=== PATIENT | male | born 1965 ===

== ENCOUNTER 2017-04-04 06:11 | Day surgery (SDC) | payer MEDICARE, MEDICAID ==
[2017-03-31 08:21] VITALS: BMI 29.0
[2017-04-04] MEDS ORDERED: Lactated Ringer's 1,000 ML IV ONE (07:00)
--- NOTE | 2017-04-04 10:44 | CP.PCM.HP ---
History of Present Illness - History of Present Illness History of Present Illness: CC: for possible total shoulder HPI: 51M PMH HTN and ETOH abuse, ETOH encephalopathy, fell 2 weeks ago out of bed onto shoulder, here for ORIF vs total shoulder replacement surgery today. Denies cardiac history. EKG, LABS, CXR reviewed in chart, METS>4. No cp no dyspnea at rest or on exertion. Patient is low risk for moderate risk surgery, medically stable for surgery. ROS: per HPI all other systems reviewed and negative by me PMH: HTN and ETOH abuse, ETOH encephalophathy PSH: neck surgery FH: denies SH: 1 ppd for 30 years, drinks 1/2 pint per day many years NKDA Temp Pulse Resp BP Pulse Ox 99 F 111 H 20 131/95 H 96 04/04/17 07:40 04/04/17 07:40 04/04/17 07:40 04/04/17 07:40 04/04/17 07:40 EXAM GEN: DELAY 2/2 HX ETOH ABUSE, THIN HEENT: NCAT, PERRL EOMI HEART S1S2 RRR LUNG CTAB NO WRR ABD SOFT NT ND NO MASS NO HSM EXT WARM WELL PERFUSED SKIN WARM DRY PSYCH NORMAL MOOD NORMAL AFFECT LABS REVIEWED IN CHART RADS: REVIEWED IN CHART ASSESSMENT AND PLAN: 51M PMH HTN and ETOH abuse, ETOH encephalopathy (Wernickes/Korsakoffs?), fell 2 weeks ago out of bed onto shoulder, here for ORIF vs total shoulder replacement surgery today. Denies cardiac history. EKG, LABS, CXR reviewed in chart, METS> 4. No cp no dyspnea at rest or on exertion. Patient is low risk for moderate risk surgery, medically stable for surgery. ORIF/Total shoulder replacement s/p fall admit to medsurg VTE ppx per ortho Ancef 2 more doses PT eval and treat pain control incentive spirometer Ortho consult Dr. Fung HTN stable, continue cozaar ETOH abuse/ETOH encephalopathy continue thiamine Present on Admission - Present on Admission Any Indicators Present on Admission: No Past Patient History - Past Medical History & Family History Past Medical History?: Yes - Past Social History Smoking Status: Heavy Smoker > 10 Cigarettes Daily - CARDIAC Hx Cardiac Disorders: Yes Hx Hypertension: Yes - PULMONARY Hx Respiratory Disorders: No - NEUROLOGICAL Hx Neurological Disorder: No - HEENT Hx HEENT Problems: No - RENAL Hx Chronic Kidney Disease: No - ENDOCRINE/METABOLIC Hx Endocrine Disorders: No - HEMATOLOGICAL/ONCOLOGICAL Hx Blood Disorders: No - INTEGUMENTARY Hx Dermatological Problems: No - MUSCULOSKELETAL/RHEUMATOLOGICAL Hx Musculoskeletal Disorders: Yes Hx Back Pain: Yes Other/Comment: LIMIT JOINT MOTION - GASTROINTESTINAL Hx Gastrointestinal Disorders: No - GENITOURINARY/GYNECOLOGICAL Hx Genitourinary Disorders: No - PSYCHIATRIC Hx Psychophysiologic Disorder: No Hx Substance Use: No - SURGICAL HISTORY Hx Surgeries: Yes Other/Comment: NECK SX 2010 - ANESTHESIA Hx Anesthesia: Yes Hx Anesthesia Reactions: No Hx Malignant Hyperthermia: No Has any member of the family had a problem w/ anesthesia?: No Meds Allergies/Adverse Reactions: Allergies Allergy/AdvReac Type Severity Reaction Status Date / Time No Known Allergies Allergy Verified 05/01/14 15:25 Results - Vital Signs Recent Vital Signs: Last Vital Signs Temp 99 F 04/04/17 07:40 Pulse 111 H 04/04/17 07:40 Resp 20 04/04/17 07:40 BP 131/95 H 04/04/17 07:40 Pulse Ox 96 04/04/17 07:40 - Labs Labs: Laboratory Results - last 24 hr 04/04/17 04/04/17 07:15 07:41 Blood Type AB POSITIVE Blood Type Confirm AB POSITIVE Antibody Screen Negative Crossmatch See Detail BBK History Checked No verified bt
[2017-04-04 12:59] LABS: SQUAMOUS EPITHIAL 1 /hpf (0-5); URINE BILIRUBIN NEGATIVE (NEGATIVE); URINE BLOOD NEGATIVE (NEGATIVE); URINE CLARITY CLEAR (Clear); URINE COLOR YELLOW (YELLOW); URINE GLUCOSE (UA) NEG (Normal); URINE LEUKOCYTE ESTERASE NEG Leu/uL (Negative); URINE NITRATE NEGATIVE (NEGATIVE); URINE PROTEIN NEGATIVE (NEGATIVE)
[2017-04-04 13:22] LABS: INR 1.4 (0.9-1.2); PROTHROMBIN TIME 15.3 Seconds (9.8-13.1)
[2017-04-04 13:23] LABS: PARTIAL THROMBOPLASTIN TIME 30.2 Seconds (25.6-37.1)
[2017-04-04] MEDS ORDERED: Succinylcholine 200 mg/10 ml Inj IV ONE (16:58)
[2017-04-04] MEDS ORDERED: Midazolam 2 MG/2 ML VIAL ONE (16:58)
[2017-04-04] MEDS ORDERED: Propofol 10 mg/ml Inj (20 ML) ONE (16:58)
[2017-04-04] MEDS ORDERED: Lidocaine 4% (Laryng-O-Jet) Kit MM ONE (16:58)
[2017-04-04] MEDS ORDERED: Lidocaine Hydrochloride 5 ML INJ ONE (16:58)
[2017-04-04] MEDS ORDERED: HYDROmorphone 0.5 mg/0.5 ml ISec IVP PRN (19:06)
[2017-04-04] MEDS ORDERED: Lactated Ringer's 1,000 ML IV SCH (19:06)
--- NOTE | 2017-04-04 19:25 | CP.PCM.DIS ---
Provider - Provider Attending physician: Santosh Fung III, MD Primary care physician: Sharon Ruff MD Time Spent in preparation of Discharge (in minutes): 20 Hospital Course - Lab Results Lab Results: Most Recent Lab Values PT 15.3 Seconds (9.8-13.1) H 04/04/17 12:50 INR 1.4 (0.9-1.2) H 04/04/17 12:50 APTT 30.2 Seconds (25.6-37.1) 04/04/17 12:50 Urine Color Yellow (YELLOW) 04/04/17 12:50 Urine Clarity Clear (Clear) 04/04/17 12:50 Urine pH 7.0 (5.0-8.0) 04/04/17 12:50 Ur Specific Orick 1.010 (1.003-1.030) 04/04/17 12:50 Urine Protein Negative mg/dL (NEGATIVE) 04/04/17 12:50 Urine Glucose (UA) Neg mg/dL (Normal) 04/04/17 12:50 Urine Ketones Negative mg/dL (NEGATIVE) 04/04/17 12:50 Urine Blood Negative (NEGATIVE) 04/04/17 12:50 Urine Nitrate Negative (NEGATIVE) 04/04/17 12:50 Urine Bilirubin Negative (NEGATIVE) 04/04/17 12:50 Urine Urobilinogen 2.0 mg/dL (0.2-1.0) 04/04/17 12:50 Ur Leukocyte Esterase Neg Sahra/uL (Negative) 04/04/17 12:50 Urine RBC (Auto) < 1 /hpf (0-3) 04/04/17 12:50 Urine Microscopic WBC 1 /hpf (0-5) 04/04/17 12:50 Ur Squamous Epith Cells 1 /hpf (0-5) 04/04/17 12:50 Blood Type AB POSITIVE 04/04/17 07:15 Blood Type Confirm AB POSITIVE 04/04/17 07:41 Antibody Screen Negative 04/04/17 07:15 Crossmatch See Detail 04/04/17 07:15 BBK History Checked No verified bt 04/04/17 07:15 - Hospital Course Hospital Course: CC: for possible total shoulder HPI: 51M PMH HTN and ETOH abuse, ETOH encephalopathy, fell 2 weeks ago out of bed onto shoulder, here for ORIF vs total shoulder replacement surgery today. Denies cardiac history. EKG, LABS, CXR reviewed in chart, METS>4. No cp no dyspnea at rest or on exertion. Patient is low risk for moderate risk surgery, medically stable for surgery. ROS: per HPI all other systems reviewed and negative by me PMH: HTN and ETOH abuse, ETOH encephalophathy PSH: neck surgery FH: denies SH: 1 ppd for 30 years, drinks 1/2 pint per day many years NKDA Temp Pulse Resp BP Pulse Ox 99 F 111 H 20 131/95 H 96 04/04/17 07:40 04/04/17 07:40 04/04/17 07:40 04/04/17 07:40 04/04/17 07:40 EXAM GEN: DELAY 2/2 HX ETOH ABUSE, THIN HEENT: NCAT, PERRL EOMI HEART S1S2 RRR LUNG CTAB NO WRR ABD SOFT NT ND NO MASS NO HSM EXT WARM WELL PERFUSED SKIN WARM DRY PSYCH NORMAL MOOD NORMAL AFFECT LABS REVIEWED IN CHART RADS: REVIEWED IN CHART ASSESSMENT AND PLAN: 51M PMH HTN and ETOH abuse, ETOH encephalopathy (Wernickes/Korsakoffs?), fell 2 weeks ago out of bed onto shoulder, here for ORIF vs total shoulder replacement surgery today. Denies cardiac history. EKG, LABS, CXR reviewed in chart, METS> 4. No cp no dyspnea at rest or on exertion. Patient is low risk for moderate risk surgery, medically stable for surgery. ORIF/Total shoulder replacement s/p fall PATIENT HAD ORIF, MAY BE DISCHARGED HOME PER ORTHO, WELL WHEN CLEARED BY ANESTHESIOLOGY FROM PACU. HTN stable, continue cozaar ETOH abuse/ETOH encephalopathy continue thiamine Discharge Exam - Head Exam Head Exam: ATRAUMATIC, NORMOCEPHALIC - Eye Exam Eye Exam: EOMI, Normal appearance, PERRL Pupil Exam: NORMAL ACCOMODATION - ENT Exam ENT Exam: Mucous Membranes Moist, Normal Oropharynx - Neck Exam Neck exam: Full Rom, Normal Inspection - Respiratory Exam Respiratory Exam: Clear to PA & Lateral, NORMAL BREATHING PATTERN - Cardiovascular Exam Cardiovascular Exam: RRR, +S1, +S2 - GI/Abdominal Exam GI & Abdominal Exam: Normal Bowel Sounds, Soft. absent: Organomegaly, Tenderness - Extremities Exam Extremities exam: normal capillary refill, pedal pulses present - Back Exam Back exam: absent: CVA tenderness (L), CVA tenderness (R) - Neurological Exam Neurological exam: Alert, Oriented x3 - Psychiatric Exam Psychiatric exam: Normal Affect, Normal Mood - Skin Skin Exam: Dry, Warm Discharge Plan - Discharge Medications Prescriptions: Bone Meal/Vitamin D2 [Bone Meal-Vitamin D Tablet] 5,000 mg PO DAILY #30 Losartan [Cozaar] 50 mg PO DAILY #30 Metoprolol Tartrate 50 mg PO DAILY #30 Thiamine [Vitamin B1 Tab] 50 mg PO DAILY #30 - Follow Up Plan Condition: GOOD Disposition: HOME/ ROUTINE Additional Instructions: follow up with orthopedic surgery 3-7 days follow up with pcp 7-10 days resume diet medications as prescribed resume activity as tolerated return to ER if condition worsens. Referrals: Sharon Ruff MD [Primary Care Provider] -
--- NOTE | 2017-04-04 20:10 | PCM.SURG1 ---
Surgeon's Initial Post Op Note - Surgeon's Notes Surgeon: Kenton Coal Passer: n/a Type of Anesthesia: General Endo Anesthesia Administered By: Dr Bryan Pre-Operative Diagnosis: displaced comminuted 4 part fx L prox humerus Operative Findings: as above Post-Operative Diagnosis: as above Operation Performed: Closed reduction displaced ZL proximal humerus fx. applx shouldr immobilizer. positioning of fluoro interpretation of video images Specimen/Specimens Removed: n/a Estimated Blood Loss: EBL {In ML}: 0 Blood Products Given: N/A Drains Used: No Drains Post-Op Condition: Good Date of Surgery/Procedure: 04/04/17 Time of Surgery/Procedure: 18:50 (time in room 1836/anesthesia indcution time 1836)
[2017-04-04] MEDS ORDERED: ceFAZolin 2 GM in Sodium Chloride 0.9% 100 ML IVPB SCH (21:00)
[2017-04-04 21:05] VITALS: BP 137/86; PULSE 86; RESP 20; TEMP 98.4; O2SAT 98
--- NOTE | 2017-04-05 00:03 | CARD ---
APPROVED REPORT EKG Measurement Heart [id number] <Conclusion> Normal sinus rhythm Normal ECG
[2017-04-05] MEDS ORDERED: Metoprolol Succinate 50 mg XL Tab PO SCH (09:00)
--- NOTE | 2017-04-05 10:36 | RAD ---
PROCEDURE: Radiographs of the Left Shoulder HISTORY: postop COMPARISON: No prior. FINDINGS: BONES: There is an acute impacted comminuted fracture in the neck of the humerus extending to the greater tuberosity. JOINTS: Bone alignment is normal. The glenohumeral and acromioclavicular joints are normal. SOFT TISSUES: Normal. OTHER FINDINGS: None. IMPRESSION: Acute impacted comminuted fracture in the neck of the humerus extending to the greater tuberosity. No dislocation.
--- NOTE | 2017-04-06 12:42 | RAD ---
PROCEDURE: HISTORY: Fluoroscopy for left shoulder reduction COMPARISON: None TECHNIQUE: Total fluoroscopic time utilized during the procedure: 12.9 second FINDINGS: Submitted images from the current procedure: 5 IMPRESSION: Less than 1 hour fluoroscopic time utilized during performance of the procedure
--- NOTE | 2017-04-08 21:11 | OP ---
PROCEDURE DATE: 04/04/2017 PREOPERATIVE DIAGNOSIS: Displaced comminuted pathologic 4-part fracture, left proximal humerus. POSTOPERATIVE DIAGNOSIS: Displaced comminuted pathologic 4-part fracture, left proximal humerus. PROCEDURES: 1. Closed reduction of displaced proximal humerus fracture. 2. Application shoulder immobilizer. 3. Positioning of fluoroscope, interpretation of video images. SURGEON: Santosh Fung MD. HUMAN SERVICES CASE MANAGER: No community relations assistant. ANESTHESIA: General endotracheal anesthesia by Dr. Bryan. SPECIMENS: No specimens were removed. BLOOD LOSS: No blood loss, no blood products. DRAINS: No drains. POSTOPERATIVE CONDITION: Stable. OPERATIVE INDICATION: The patient in the supine position with all bony prominences well padded, the left upper extremity is evaluated. Possible open reduction, possible shoulder arthroplasty was obvia glynn by the fact that the patient has chronic alcoholic liver disease, has a PT, PTT which was elevate d and this is significant bleeding risk. At that point, the surgery was aborted and attempted closed reduction was accomplished. Pros, cons, risks and benefits of same were discussed at length with th e patient. The possibility of mechanical failure, stiffness, infection, thromboembolic disease, seco ndary or tertiary surgery is discussed. The patient can no longer stand the discomfort and wished to attempt a closed reduction. OPERATIVE PROCEDURE: After having obtained informed consent, after having identified side, site and procedure and a critical pause/timeout, after the satisfactory induction of the anesthetic, the patie nt identified as correct in the supine position with all bony prominences well padded, under the surg mckenzie's direction, the fluoroscope was positioned, video images are generated, therapeutic decisions ar e made there from. The fluoroscope having been positioned, the angulated and comminuted 4-part fract ure having been identified, the fracture was reduced with the upper extremity brought up in the direc t total elevation plane. This is hyperextended, the surgeon stabilized the scapula, the humerus is h yperextended with the proximal humerus in position. There was found to be a clunk as the fracture re duces, verification of position is offered on AP and oblique image intensification views. Position i s found to be grossly acceptable. Of course, it is explained to the patient that the patient may req uire open reduction, internal fixation or hemiarthroplasty later. The possibility of same was discus sed at length and again the concept that the surgery was aborted because of the situation was elucida glynn, because of the PT, PTT and possible hematologic complications was elucidated. Santosh Fung MD cc: [id number] TT: 04/08/2017 21:10:29 jn
== END 2017-04-04 21:30 | disposition home or self-care (01) ==
LOC: H.OPSURG 06:11 → H.MEDSURG1 20:48 → H.OPSURG 21:30
PROVIDERS: ATTEND Orthopaedic Surgery
DX: S42.201B Unspecified fracture of upper end of right humerus, initial encounter for open fracture (principal); I10 Essential (primary) hypertension; F17.210 Nicotine dependence, cigarettes, uncomplicated; I42.9 Cardiomyopathy, unspecified
CPT/HCPCS: 24999; 36415; 73030; 81003; 85610; 85730; 86850; 86900; 86920; 93005; J0330; J0690; J1170; J1885; J2250; J2704; J2765; J3010; J7120